=== PATIENT | male | born 1985 | race Hispanic/Latino ===

== ENCOUNTER 2017-03-21 19:29 | Emergency (ER) | payer MEDICAID ==
[2017-03-21 20:07] LABS: BASOPHILS % (AUTO) 0.8 % (0.0-5.0); HEMATOCRIT 38.6 % (42-54); LYMPHOCYTES % (AUTO) 27.1 % (21.0-51.0); MEAN CORPUSCULAR HEMOGLOBIN 29.2 pg (27.0-33.0); MEAN CORPUSCULAR HGB CONC 34.5 g/dL (32.0-36.0); MEAN CORPUSCULAR VOLUME 84.6 fL (79-99); MONOCYTES % (AUTO) 4.6 % (3.0-13.0); NEUTROPHILS % (AUTO) 64.5 % (40.0-77.0); PLATELET COUNT (AUTO) 252 K/uL (130-400); RED BLOOD CELL COUNT(AUTO) 4.56 MIL/uL (4.50-6.20); RED CELL DISTRIBUTION WIDTH 13.5 % (11.0-15.5); WHITE BLOOD COUNT (AUTO) 9.7 K/uL (4.8-10.8)
[2017-03-21 20:21] LABS: CARBON DIOXIDE 28 mmol/L (21-32); CHLORIDE 103 mmol/L (101-111); CREATININE 0.9 mg/dL (0.5-1.5); GLOMERULAR FILTR. RATE CALC 104 mL/min (>60); GLUCOSE,RANDOM 134 mg/dL (70-105); POTASSIUM 3.1 mmol/L (3.5-5.1); SODIUM SERUM 140 mmol/L (136-145); UREA NITROGEN, BLOOD 9 mg/dL (7-18)
[2017-03-21 20:24] LABS: ALANINE AMINOTRANSFERASE 161 U/L (12-78); ALBUMIN 3.7 g/dL (3.5-5.0); ASPARTATE AMINOTRANSFERASE 63 U/L (10-37); BILIRUBIN,TOTAL 0.2 mg/dL (0.2-1.0); TOTAL PROTEIN, SERUM 7.4 g/dL (6.0-8.3)
[2017-03-21 20:42] LABS: ACETAMINOPHEN < 1 mcg/mL (10-29); ALCOHOL, BLOOD < 3 mg/dL (0-10)
[2017-03-21 21:29] LABS: APPEARANCE,URINE Clear (CLEAR); BILIRUBIN,URINE Negative (NEGATIVE); COLOR,URINE Yellow (YELLOW); GLUCOSE, URINE (UA) Negative (NEGATIVE); KETONES,URINE Negative (NEGATIVE); LEUKOCYTE ESTERASE ,URINE Negative (NEGATIVE); NITRATE,URINE Negative (NEGATIVE); OCCULT BLOOD,URINE Negative (NEGATIVE); PROTEIN,URINE POS 1+ (NEGATIVE)
[2017-03-21 21:34] LABS: RAPID GROUP A STREP NEGATIVE (NEGATIVE)
[2017-03-21 21:54] LABS: BACTERIA,URINE Few /HPF (None Seen); MUCUS,URINE Few LPF (None Seen); RBC,URINE None Seen /HPF (0-1); WBC,URINE None Seen /HPF (0-1)
[2017-03-21 22:06] LABS: AMPHET/METH SCREEN,URINE NEGATIVE (NEGATIVE); BARBITURATE SCREEN, URINE NEGATIVE (NEGATIVE); BENZODIAZEPINES SCREEN,URINE NEGATIVE (NEGATIVE); CANNABINOID SCREEN,URINE POSITIVE (NEGATIVE); COCAINE SCREEN,URINE NEGATIVE (NEGATIVE); OPIATE SCREEN,URINE NEGATIVE (NEGATIVE); PHENCYCLIDINE SCREEN,URINE NEGATIVE (NEGATIVE)
[2017-03-21] MEDS ORDERED: DiphenhydrAMINE HCL 50 MG/ML VIAL ONE (23:12)
== END 2017-03-21 23:19 | disposition home or self-care (01) ==
LOC: EDH 19:29
DX: F20.9 Schizophrenia, unspecified (principal); R09.89 Other specified symptoms and signs involving the circulatory and respiratory systems; G47.00 Insomnia, unspecified; E78.5 Hyperlipidemia, unspecified; F12.10 Cannabis abuse, uncomplicated; Z72.0 Tobacco use
CPT/HCPCS: 36415; 70360; 80053; 80305; 81001; 85025; 87804 ×2; 87880; 96372; 99285; G0480 ×2; G0481; J1200

== ENCOUNTER 2023-11-08 01:26 | Emergency (ER) | payer MEDICAID ==
[~2023-11-08] VITALS: Ht 167.6 cm; Wt 127.0 kg
[~2023-11-08 01:26] MED LIST: AMOX1TAB16 PO; FEXO1TAB8 PO; PRED20TA3 PO; TRIA10.8 NS
[2023-11-08 01:48] LABS: BASOPHILS # (AUTO) 0.06 K/uL (0.00-0.20); BASOPHILS % (AUTO) 0.6 % (0.0-5.0); EOSINOPHILS # (AUTO) 0.46 K/uL (0.00-0.70); EOSINOPHILS % (AUTO) 4.7 % (0.0-8.0); HEMATOCRIT 38.5 % (42-54); IMMATURE GRANULOCYTE ABSOLUTE 0.04 K/uL (0-1); LYMPHOCYTES # (AUTO) 3.3 K/uL (1.0-4.8); LYMPHOCYTES % (AUTO) 34.1 % (21.0-51.0); MEAN CORPUSCULAR HEMOGLOBIN 29.8 pg (27.0-33.0); MEAN CORPUSCULAR HGB CONC 35.6 g/dL (32.0-36.0); MEAN CORPUSCULAR VOLUME 83.7 fL (79-99); MONOCYTES # (AUTO) 0.5 K/uL (0.1-1.0); MONOCYTES % (AUTO) 4.9 % (3.0-13.0); NEUTROPHILS # (AUTO) 5.4 K/uL (1.8-7.7); NEUTROPHILS % (AUTO) 55.3 % (40.0-77.0); PLATELET COUNT (AUTO) 276 K/uL (130-400); RED CELL DISTRIBUTION WIDTH 13.5 % (11.0-15.5); WHITE BLOOD COUNT (AUTO) 9.7 K/uL (4.8-10.8)
[2023-11-08 01:54] LABS: APPEARANCE,URINE CLEAR (CLEAR); BILIRUBIN,URINE NEGATIVE (NEGATIVE); COLOR,URINE COLORLESS (YELLOW); GLUCOSE, URINE (UA) NEGATIVE (NEGATIVE); KETONES,URINE NEGATIVE (NEGATIVE); LEUKOCYTE ESTERASE ,URINE NEGATIVE Leu/uL (NEGATIVE); NITRATE,URINE NEGATIVE (NEGATIVE); OCCULT BLOOD,URINE NEGATIVE (NEGATIVE); PROTEIN,URINE NEGATIVE (NEGATIVE); UROBILINOGEN,URINE 0.2 mg/dL (0.2-1.0)
[2023-11-08 01:55] LABS: RBC,URINE 0-1 /HPF (0-1); SQUAMOUS EPITHELIAL CELL,UR RARE /HPF (0-2); WBC,URINE 0-1 /HPF (0-1)
[2023-11-08] MEDS: 0.9%NACL 1000ML 1,000 ML IV ONE (02:11)
[2023-11-08 02:35] LABS: ALBUMIN 3.6 g/dL (3.5-5.0); BILIRUBIN,TOTAL 0.5 mg/dL (0.2-1.0); TOTAL PROTEIN, SERUM 7.2 g/dL (6.0-8.3)
[2023-11-08 02:39] LABS: POTASSIUM 2.7 mmol/L (3.5-5.1)
[2023-11-08] MEDS: POTASSIUM BICARB/CIT AC 25 MEQ TABLET.EFF PO ONE (03:08)
[2023-11-08] MEDS: POTASSIUM CHLORIDE 10MEQ/100ML 100 ML IV ONE (03:09)
[2023-11-08] MEDS: hydrALAZine 20MG/ML VIAL ONE (04:04)
[2023-11-08] MEDS: hydrALAZine 20MG/ML VIAL IV ONE (04:04)
[2023-11-08] MEDS ORDERED: POTA-187 PO (04:45)
[2023-11-08 05:02] VITALS: BP 159/93; PULSE 75; RESP 18; TEMP 98; O2SAT 96
== END 2023-11-08 05:04 | disposition home or self-care (01) ==
LOC: EDH 01:26
DX: E87.6 Hypokalemia (principal); E11.9 Type 2 diabetes mellitus without complications; I10 Essential (primary) hypertension; E66.01 Morbid (severe) obesity due to excess calories; Z79.899 Other long term (current) drug therapy
CPT/HCPCS: 99285; 96365; 70450; 96366; 96361; 96375; 82550; 83735; 80053; 85025; 81001; 36415; J7030; J0360; J3480

== ENCOUNTER 2024-04-14 11:22 | Emergency (ER) | payer MEDICAID ==
[~2024-04-14] VITALS: Ht 167.6 cm; Wt 132.4 kg
[~2024-04-14 11:22] MED LIST changes: +POTA-187 PO
[2024-04-14 11:24] VITALS: BP 154/80; PULSE 96; RESP 20; TEMP 100.4
--- NOTE | 2024-04-14 12:54 | ERN ---
General Chief Complaint: Multiple Complaints Stated Complaint: HEADACHE AND COUGH Time Seen by MD: 11:28 Time Seen by Midlevel: 11:28 Source: patient History of Present Illness Initial Comments Patient is a 39-year-old male being brought in by EMS for evaluation of multiple complaints. The patient reports sinus pressure, headache, sore throat, and a cough. He was seen yesterday where he was diagnosed with a sinus infection and discharged home on antibiotics. The patient was unable to fill prescriptions and is back for repeat evaluation. Allergies: Coded Allergies: No Known Allergies (Unverified Allergy, Unknown, 11/08/23) Home Meds Active Scripts Potassium Chloride (K-Dur/Klor-Con) 10 Meq Ertab, 10 MEQ PO bid for 5 Days, #10 TAB.EC Prov:CATA MCDONALD MD 11/08/23 Fexofenadine/Pseudoephedrine (Yvonne-D 24 Hour Tablet) 1 Each Tab.er.24h, 1 EACH PO DAILY, #30 TAB Prov:KATHERINE BRICE 05/04/21 Amoxicillin/Potassium Clav (Amox Tr-K Clv 875-125 mg Tab) 1 Each Tablet, 1 EACH PO BID for 10 Days, #20 TAB Prov:KATHERINE BRICE 05/04/21 Triamcinolone Acetonide (Nasacort) 10.8 Ml [place], 2 PUFF NS BID, #1 BOTTLE Prov:KATHERINE BRICE 05/04/21 Prednisone (Prednisone) 20 Mg Tablet, 2 TAB PO AD for 5 Days, #10 TAB 0 Refills TAKE 1 TAB BY MOUTH THREE TIMES PER DAY X3 DAYS, THEN TAKE 1 TAB BY MOUTH TWICE A DAY X2 DAYS, THEN TAKE 1 TAB BY MOUTH ONCE A DAY X1 DAY. Prov:KATHERINE BRICE 05/04/21 Past Medical History Past Medical History: Diabetes-Type II, Hypertension Medical History Other: Morbid obese, allergic rhinitis Past Surgical History: None Family History Family History: Negative Social History Social History: Negative ROS Dictation CONSTITUTIONAL: Negative except for HPI HEAD/FACE: Negative except for HPI EENT: Negative except for HPI RESPIRATORY: Negative except for HPI GASTROINTESTINAL/ABDOMINAL: Negative except for HPI GENITOURINARY: Negative except for HPI MUSCULOSKELETAL: Negative except for HPI INTEGUMENTARY: Negative except for HPI NEUROLOGICAL/PSYCH: Negative except for HPI HEMATOLOGIC/LYMPHATIC: Negative except for HPI All Systems Negative, Except as noted above. 13 point review of systems assessed and all negative except for above. Physical Exam Physical Exam Dictation Vital Signs reviewed General Appearance: Alert, oriented x 3, no acute distress, well developed, nourished. Head and Face: non-traumatic. Eyes: PERRL, pink conjunctivas, eyelid no trauma, anterior chamber with arcus senilis. Ears: Pinnas intact and no signs of trauma or erythema ear canals clear and no discharge TM no erythema Nose: No discharge, no bleeding. Oropharynx: Mouth normal, tongue pink, pharynx clear,no erythema, tonsils no exudates, no abscesses noted, mucous membrane moist Neck: Supple, non-tender, no thyromegaly, no masses, no JVD, no bruits Breast:Deferred Chest:No tenderness, no crepitus, no paradoxical movement, no retractions Lungs:Clear, well-ventilated, symmetric, no rales, no wheezing, no rhonchi, no stridor, good breath sounds bilaterally Heart: Regular rate, regular rhythm, no murmur, no gallops Vascular: no peripheral edema, Abdomen: Soft, positive bowel sounds, nondistended, no guarding, nontender, no rebound, no masses no hepatomegaly, no splenomegaly, no Cota's sign, no hernias. Rectal: Deferred Genital: Deferred Neurological: Normal speech, motor function intact, sensory function intact Musculoskeletal: Neck nontender, full range of motion, back nontender, full range of motion, Extremities: nontender, full range of motion Skin: Color pink, dry, no turgor, no rash, no lacerations, no abrasions, no contusions. Lymphatic: Deferred [facility] 39-year-old male presenting with flu-like symptoms via EMS. Initial vital signs show a temp of 100.4. The remainder of his vital signs are stable. His physical examination is reassuring. Patient was not tachycardic. There was no abdominal tenderness. Chest x-ray was obtained which does not reveal any evidence of pneumonia. For swabs were ordered but patient was unable to be found in the emergency department. Patient eloped from the emergency ED Course Orders Procedure Category Date Status Time Chest 1vw RAD 04/14/24 Resulted 11:34 Vital Signs Date Time Temp Pulse Resp B/P (MAP) Pulse Ox O2 Delivery O2 Flow Rate FiO2 04/14/24 11:24 100.4 96 20 154/80 97 Room Air DX & DISP Disposition: Other(Comment) (Eloped) Departure Impression: Primary Impression: Eloped from emergency department Condition: Other(comment) Referrals: Valentina NUÑEZ MD (PCP) I have reviewed the case, and I agree with, Diagnosis and Plan I performed the substantive portion of the visit. I have reviewed and personally made and approve the management plan that is documented in the note by myself or the HAYDEN. I acknowledge for responsibility for the patient's management plan. SHERYL MARTIN Apr 14, 2024 12:54 OMAR RUFFIN DO Apr 15, 2024 07:22
--- NOTE | 2024-04-14 12:55 | HMCIMG ---
Exam Type: CHEST 1VW Clinical Information: sob Comparison: None Findings: The lungs are clear of infiltrates. The heart is normal in size. The bony and soft tissue structures of the chest are unremarkable. Impression: Clear lungs.
== END 2024-04-14 12:47 | disposition left against medical advice (07) ==
LOC: EDH 11:22 → EEVIPCON 11:22 → EDH 12:47
DX: R51.9 Headache, unspecified (principal); R05.9 Cough, unspecified; E11.9 Type 2 diabetes mellitus without complications; E66.01 Morbid (severe) obesity due to excess calories; I10 Essential (primary) hypertension; Z79.899 Other long term (current) drug therapy; Z53.21 Procedure and treatment not carried out due to patient leaving prior to being seen by health care provider
CPT/HCPCS: 71045; 99283

== ENCOUNTER 2024-09-26 14:50 | Emergency (ER) | payer MEDICAID ==
[~2024-09-26] VITALS: Ht 167.6 cm; Wt 127.0 kg
--- NOTE | 2024-09-26 15:28 | ERN ---
ED Note History of Present Illness Stated Complaint: HEAD PROBLEM Chief Complaint: Other Problems Time Seen by MD: 15:14 Dictation: 39-year-old male presenting with a history of headache like symptoms since restarting his high blood pressure medicine after being noncompliant for the past few months patient reports he was smoking marijuana and started his blood pressure medicine shortly after. Patient reports he fell a head bain like sensation but the symptoms are now resolved Allergies: Coded Allergies: No Known Allergies (Unverified Allergy, Unknown, 11/08/23) Home Meds Active Scripts Potassium Chloride (K-Dur/Klor-Con) 10 Meq Ertab, 10 MEQ PO bid for 5 Days, #10 TAB.EC Prov:CATA MCDONALD MD 11/08/23 Fexofenadine/Pseudoephedrine (Yvonne-D 24 Hour Tablet) 1 Each Tab.er.24h, 1 EACH PO DAILY, #30 TAB Prov:KATHERINE BRICE 05/04/21 Amoxicillin/Potassium Clav (Amox Tr-K Clv 875-125 mg Tab) 1 Each Tablet, 1 EACH PO BID for 10 Days, #20 TAB Prov:KATHERINE BRICE 05/04/21 Triamcinolone Acetonide (Nasacort) 10.8 Ml [place], 2 PUFF NS BID, #1 BOTTLE Prov:KATHERINE BRICE 05/04/21 Prednisone (Prednisone) 20 Mg Tablet, 2 TAB PO AD for 5 Days, #10 TAB 0 Refills TAKE 1 TAB BY MOUTH THREE TIMES PER DAY X3 DAYS, THEN TAKE 1 TAB BY MOUTH TWICE A DAY X2 DAYS, THEN TAKE 1 TAB BY MOUTH ONCE A DAY X1 DAY. Prov:KATHERINE BRICE 05/04/21 Past Medical History Past Medical History: Diabetes-Type II, Hypertension Additional Past Medical Hx: Morbid obese, allergic rhinitis Surgical History: None Family History: Negative Social History: Negative Review of System Dictation Constitutional: Negative for fever,chills, and weight loss Eyes: Negative for injury, pain,redness, and discharge ENT: Negative for injury,pain or swelling Cardiovascular: Negative for chest pain, palpitations, and edema Respiratory: Negative for shortness of breath, cough, and wheezing, Abdomen/GI: Negative for abdominal pain, nausea, vomiting, diarrhea, and constipation Back: Negative for injury and pain : Negative for injury, bleeding and discharge MS/Extremity: Negative for injury and deformity Skin: Negative for rash, and discoloration Neuro: Per HPI Initial Vital Sign VS Vital Signs Date Time Temp Pulse Resp B/P (MAP) Pulse Ox O2 Delivery O2 Flow Rate FiO2 09/26/24 14:53 98.1 90 18 142/82 98 Physical Exam Dictation General: awake, alert, NAD Head/Face: Normocephalic, atraumatic Eyes: PERRL, EOMI, vision at baseline ENT: oral cavity clear, TMs clear, no signs of infection Neck: Trachea midline, supple, no nuchal rigidity Cardiovascular: RRR, normal S1/S2, No MRGs, no JVD Respiratory: CTAB, no respiratory distress, No rales or wheezes Abdomen: Soft, non-tender, non-distended, normal bowel sounds, no guarding or rebound. Skin: Warm, dry, normal turgor, no rash MS/Extremity: Pulses equal, no cyanosis, neurovascular intact, FROM Neuro: COAx4, GCS 15, strength 5/5, CN 2-12 intact, normal cerebellar exam, normal gait, Psych: Normal behavior, mood, and affect normal ED Course ED Course Vital Signs Date Time Temp Pulse Resp B/P (MAP) Pulse Ox O2 Delivery O2 Flow Rate FiO2 09/26/24 14:53 98.1 90 18 142/82 98 Medical Decision Making MDM MDM: Differential diagnosis: Rationale: Tests considered and ordered secondary to shared decision making include: Previous outside records reviewed: Old ER visits. Risk of complication and/or morbidity or mortality of patient management: None Medications-Per medication reconciliation Need for hospitalization: Patient does not meet criteria for hospitalization. Need for emergency major/minor surgery: No There are no social concerns with this patient. Prescription drug management Prescriptions will include symptomatic care Patient's prior external medical records from other ER visits were reviewed by me as indicated. Prior testing and results from previous visits were reviewed. Prior tests were taken into account with medical decision making and resource utilization, independent historian/historians were used to obtain complete medical history. I independently interpreted the test that were performed, results were reviewed by me and considered findings on radiology if ordered. Medical management and examination interpretation discussions were had by me with other qualified healthcare professionals as indicated for the patient's care. 39-year-old male headache status post blood pressure medicine normotensive now physical exams are normal neurologic exam normal stable for discharge no imaging or DX & DISP Disposition: Discharge Departure Impression: Primary Impression: Acute headache Additional Impression: Hypertension Condition: Stable Referrals: Valentina NUÑEZ MD (PCP) CHIDI GONZALEZ MD Sep 26, 2024 15:28
[2024-09-26 16:02] VITALS: BP 135/79; PULSE 85; RESP 18; TEMP 98.1; O2SAT 99
== END 2024-09-26 15:56 | disposition home or self-care (01) ==
LOC: EDH 14:50
DX: R51.9 Headache, unspecified (principal); I10 Essential (primary) hypertension; E11.9 Type 2 diabetes mellitus without complications; E66.01 Morbid (severe) obesity due to excess calories; Z79.899 Other long term (current) drug therapy; Z68.42 Body mass index [BMI] 45.0-49.9, adult
CPT/HCPCS: 99282

== ENCOUNTER → 2024-12-03 | Emergency (ER) | payer MEDICAID ==
[~2024-12-03] VITALS: Ht 167.6 cm; Wt 136.1 kg
[2024-12-03 22:37] VITALS: BP 193/140; PULSE 102; RESP 20; TEMP 98.7
--- NOTE | 2024-12-03 22:44 | ERN ---
ED Note History of Present Illness Stated Complaint: Patient comes in. Because he had some intermittent headache. Intermittent dizziness. Has been going on for a day no falls his traumas. No fevers no chills no cough no congestion no chest pain or shortness of breath no abdominal pain no nausea no vomiting I says he went to his PCP in his PCP says dehydrated but he did not give him anything Chief Complaint: Multiple Complaints Time Seen by MD: 22:38 Allergies: Coded Allergies: potassium (Unverified Allergy, Unknown, 12/03/24) Uncoded Allergies: ALLERGY MEDICATION (Allergy, Unknown, 12/03/24) Home Meds Active Scripts Potassium Chloride (K-Dur/Klor-Con) 10 Meq Ertab, 10 MEQ PO bid for 5 Days, #10 TAB.EC Prov:CATA MCDONALD MD 11/08/23 Fexofenadine/Pseudoephedrine (Yvonne-D 24 Hour Tablet) 1 Each Tab.er.24h, 1 EACH PO DAILY, #30 TAB Prov:KATHERINE BRICE 05/04/21 Amoxicillin/Potassium Clav (Amox Tr-K Clv 875-125 mg Tab) 1 Each Tablet, 1 EACH PO BID for 10 Days, #20 TAB Prov:KATHERINE BRICE 05/04/21 Triamcinolone Acetonide (Nasacort) 10.8 Ml [place], 2 PUFF NS BID, #1 BOTTLE Prov:KATHERINE BRICE 05/04/21 Prednisone (Prednisone) 20 Mg Tablet, 2 TAB PO AD for 5 Days, #10 TAB 0 Refills TAKE 1 TAB BY MOUTH THREE TIMES PER DAY X3 DAYS, THEN TAKE 1 TAB BY MOUTH TWICE A DAY X2 DAYS, THEN TAKE 1 TAB BY MOUTH ONCE A DAY X1 DAY. Prov:KATHERINE BRICE 05/04/21 Past Medical History Past Medical History: Asthma, Diabetes-Type II, Hypertension Additional Past Medical Hx: Morbid obese, allergic rhinitis Surgical History: None Family History: Negative Social History: Negative Review of System Dictation Constitutional: Negative for fever,chills, and weight loss Eyes: Negative for injury, pain,redness, and discharge ENT: Negative for injury,pain or swelling Cardiovascular: Negative for chest pain, palpitations, and edema Respiratory: Negative for shortness of breath, cough, and wheezing, Abdomen/GI: Negative for abdominal pain, nausea, vomiting, diarrhea, and constipation Back: Negative for injury and pain : Negative for injury, bleeding and discharge MS/Extremity: Negative for injury and deformity Skin: Negative for rash, and discoloration Neuro: Negative for headache, weakness, numbness, tingling, and seizure Psych: Negative for suicide ideation, homicidal ideation, and hallucinations Initial Vital Sign VS Vital Signs Date Time Temp Pulse Resp B/P (MAP) Pulse Ox O2 Delivery O2 Flow Rate FiO2 12/03/24 22:37 98.8 102 20 193/140 95 Room Air Physical Exam Dictation General: awake, alert, NAD Head/Face: Normocephalic, atraumatic Eyes: PERRL, EOMI, vision at baseline ENT: oral cavity clear, TMs clear, no signs of infection Neck: Trachea midline, supple, no nuchal rigidity Cardiovascular: RRR, normal S1/S2, No MRGs, no JVD Respiratory: CTAB, no respiratory distress, No rales or wheezes Abdomen: Soft, non-tender, non-distended, normal bowel sounds, no guarding or rebound. Skin: Warm, dry, normal turgor, no rash MS/Extremity: Pulses equal, no cyanosis, neurovascular intact, FROM Neuro: COAx4, GCS 15, strength 5/5, CN 2-12 intact, normal cerebellar exam, normal gait, Psych: Normal behavior, mood, and affect normal Evaluated and triage room with nurse. NIH of 0 was able to ambulate able to speaking clear complete sentences. Cerebellar testing within normal limits no signs of head trauma no acute distress nontoxic appearing Results (Laboratory/Radiology) Laboratory/Radiology Laboratory Tests Test 12/03/24 22:59 White Blood Count 10.2 K/uL (4.8-10.8) Red Blood Count 4.69 MIL/uL (4.50-6.20) Hemoglobin 13.8 g/dL (14.0-18.0) L Hematocrit 39.9 % (42-54) L Mean Corpuscular Volume 85.1 fL (79-99) Mean Corpuscular Hemoglobin 29.4 pg (27.0-33.0) Mean Corpuscular Hemoglobin Concent 34.6 g/dL (32.0-36.0) Red Cell Distribution Width 13.2 % (11.0-15.5) Platelet Count 241 K/uL (130-400) Mean Platelet Volume 10.4 fL (7.5-10.5) Immature Granulocyte % (Auto) 0.5 % (0-1) Neutrophils (%) (Auto) 88.7 % (40.0-77.0) H Lymphocytes (%) (Auto) 9.2 % (21.0-51.0) L Monocytes (%) (Auto) 1.4 % (3.0-13.0) L Eosinophils (%) (Auto) 0.0 % (0.0-8.0) Basophils (%) (Auto) 0.2 % (0.0-5.0) Neutrophils # (Auto) 9.1 K/uL (1.8-7.7) H Lymphocytes # (Auto) 0.9 K/uL (1.0-4.8) L Monocytes # (Auto) 0.1 K/uL (0.1-1.0) Eosinophils # (Auto) 0.00 K/uL (0.00-0.70) Basophils # (Auto) 0.02 K/uL (0.00-0.20) Absolute Immature Granulocyte (auto 0.05 K/uL (0-1) Nucleated Red Blood Cells 0.0 % (0.0-0.19) Sodium Level 127 mmol/L (136-145) L Potassium Level 4.2 mmol/L (3.5-5.1) Chloride Level 93 mmol/L (101-111) L Carbon Dioxide Level 24 mmol/L (21-32) Blood Urea Nitrogen 14 mg/dL (7-18) Creatinine 1.4 mg/dL (0.5-1.3) H Glomerular Filtration Rate Calc 66 mL/min (>90) Random Glucose 564 mg/dL (70-105) *H Total Calcium 9.0 mg/dL (8.5-10.1) Troponin I High Sensitivity 18 ng/L (4-75) ED Course ED Course Orders Procedure Category Date Status Time Cbc With Differential LAB 12/03/24 In Process 22:40 Chest 1vw RAD 12/03/24 Taken 22:40 Lactated Ringers PHA 12/03/24 Complete 1000ml (Lactated 23:00 Acetaminophen 500mg PHA 12/03/24 Complete Tab (Tylenol 500mg T 23:00 Ondansetron 4mg Inj PHA 12/03/24 Complete (Zofran 4mg Inj) 23:00 Troponin I High LAB 12/03/24 Complete Sensitivity 22:40 Basic Metabolic Panel LAB 12/03/24 Complete 22:40 Insulin Regular, PHA 12/03/24 Complete Human 3ml (Humulin R 23:31 Insulin Regular, PHA 12/04/24 In Process Human 3ml (Humulin R 00:00 Current Medications Medications (Trade) Dose Ordered Sig/Yelena Route PRN Reason Start Time Stop Time Status Last Admin Dose Admin Acetaminophen (TYLenol 500MG TAB) 1,000 mg ONCE ONCE PO 12/03/24 23:00 12/03/24 23:01 DC 12/03/24 23:06 Insulin Human Regular (humuLIN R 100 UNIT/ML 3ML) 10 unit ONCE ONCE SQ 12/04/24 00:00 12/04/24 00:01 Insulin Human Regular (humuLIN R 100 UNIT/ML 3ML) 300 unit STK-MED ONCE .ROUTE 12/03/24 23:31 12/03/24 23:32 DC Lactated Ringer's 1,000 ml @ 0 mls/hr ONCE ONCE IV 12/03/24 23:00 12/03/24 23:10 DC 12/03/24 23:14 Ondansetron HCl (zoFRAN 4MG INJ) 4 mg ONCE ONCE IVP 12/03/24 23:00 12/03/24 23:01 DC 12/03/24 23:06 Vital Signs Date Time Temp Pulse Resp B/P (MAP) Pulse Ox O2 Delivery O2 Flow Rate FiO2 12/03/24 22:37 98.8 102 20 193/140 95 Room Air Medical Decision Making MDM Patient has a uncontrolled diabetes. 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 Risk of complication and/or morbidity or mortality of patient management: None Medications-Per medication reconciliation Need for hospitalization: Patient does not meet criteria for hospitalization. Need for emergency major/minor surgery: No There are no social concerns with this patient. Prescription drug management Prescriptions will include symptomatic care Patient's prior external medical records from other ER visits were reviewed by me as indicated. Prior testing and results from previous visits were reviewed. Prior tests were taken into account with medical decision making and resource utilization, independent historian/historians were used to obtain complete medical history. I independently interpreted the test that were performed, results were reviewed by me and considered findings on radiology if ordered. Medical management and examination interpretation discussions were had by me with other qualified healthcare professionals as indicated for the patient's care. DX & DISP Disposition: Discharge Departure Impression: Primary Impression: Diabetes Condition: Stable Referrals: Valentina NUÑEZ MD (PCP) JOSE SEE MD Dec 03, 2024 22:44
--- NOTE | 2024-12-03 22:51 | NUR ---
PATIENT REPORTS HE WAS TOLD BY HIS PCP TODAY THAT HE WAS DEHYDRATED SO HE CAME TO BE EVALUATED
[2024-12-03 23:04] LABS: IMMATURE GRANULOCYTE ABSOLUTE 0.05 K/uL (0-1); NUCLEATED RED BLOOD CELLS 0.0 % (0.0-0.19); PLATELET COUNT (AUTO) 241 K/uL (130-400); RED BLOOD CELL COUNT(AUTO) 4.69 MIL/uL (4.50-6.20); RED CELL DISTRIBUTION WIDTH 13.2 % (11.0-15.5); WHITE BLOOD COUNT (AUTO) 10.2 K/uL (4.8-10.8)
[2024-12-03] MEDS: LACTATED RINGERS 1000ML 1,000 ML IV ONE (23:14)
[2024-12-03 23:27] LABS: CREATININE 1.4 mg/dL (0.5-1.3); GLOMERULAR FILTR. RATE CALC 66.0 mL/min (>90); SODIUM SERUM 127.0 mmol/L (136-145); UREA NITROGEN, BLOOD 14.0 mg/dL (7-18)
[2024-12-03 23:29] LABS: GLUCOSE,RANDOM 564.0 mg/dL (70-105)
--- NOTE | 2024-12-04 00:04 | HMCIMG ---
EXAM: CR Chest, 1 view CLINICAL HISTORY: Shortness of breath. COMPARISON: Chest radiograph dated 04/14/2024. FINDINGS: The lungs show no infiltrates or other acute findings. No pleural effusion or pneumothorax. The cardiomediastinal silhouette is within normal limits. No acute osseous abnormality. IMPRESSION: No acute cardiopulmonary process is evident. Compared to the prior study, there is no significant interval change. /[place]
[2024-12-04] MEDS: 0.9%NACL 1000ML 1,000 ML IV SCH (01:07)
== END ==
LOC: EDH 22:36
DX: E11.9 Type 2 diabetes mellitus without complications (principal); E66.01 Morbid (severe) obesity due to excess calories; I10 Essential (primary) hypertension; J45.909 Unspecified asthma, uncomplicated; Z79.899 Other long term (current) drug therapy
CPT/HCPCS: 99284; 96374; 71045; 84484; 80048; 85025; 82948 ×3; 36415; 96372; J1815; J7120; J7030; J2405